=== PATIENT | female | born 2000 | race Caucasian/White ===

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

== ENCOUNTER 2023-02-14 20:02 | Outpatient (CLI) | payer MEDICAID | END 2023-02-14 23:59 | disposition critical access hospital (66) | LOC: EMS 20:02 | DX: S51.812A Laceration without foreign body of left forearm, initial encounter (principal); X78.1XXA Intentional self-harm by knife, initial encounter | CPT/HCPCS: A0425; A0429; A0999 ==